=== PATIENT | female | born 1955 | race Caucasian/White ===

== ENCOUNTER 2025-04-01 12:02 | Emergency (ER) | payer MEDICARE, OTHER, SELFPAY ==
[2025-04-01 12:04] VITALS: BP 158/103
--- NOTE | 2025-04-01 12:45 | ED.GENMED ---
History of Present Illness
General
Chief Complaint: Abdominal Symptoms
Source: patient
Exam Limitations: none
Time Seen by Provider: 04/01/25 12:35
History of Present Illness
History of Present Illness:
69-year-old female presents complaining of several days of lower abdominal pain. She has a history of diverticulitis in the past. She was sent in by family doctor. Pain is unrelieved with moving her bowels. No urinary symptoms. No fever. She
is nauseous without vomiting. No flank pain. She has a history of total hysterectomy secondary to cervical cancer. No other complaints at this time
Past History
Past History
ED Past Medical History: Asthma
Social History
Tobacco: Former smoker
Personal:
Living: with family
Phy Exam
Physical Exam
Physical Exam:
General: Well-appearing female no acute respiratory distress
HEENT: Normal cephalic atraumatic
Heart: Regular rate and rhythm
Lungs: Clear no wheeze
Abdomen is soft tender to the suprapubic region no guarding or rebound nondistended
Extremities: No cyanosis or edema
Skin warm no rash
Course
Orders/Labs/Results
Orders:
Orders
04/01/25 12:42
CT Abd/pelvis W Iv Cont Urgent
Comment:
Reason For Exam: lower abdominal pain
04/01/25 12:49
Complete Blood Count/With Diff Urgent
Comprehensive Metabolic Panel Urgent
Lipase Urgent
04/01/25 12:52
Urinalysis Reflex To Culture Urgent
Date Specimen was Collected: 04/01/25
Time Specimen was Collected: 12:50
Abnormal Lab Results
04/01/25
12:49
Abs Immat Gran (auto) 0.1 H 10^3/uL
(0-0.05)
Immature Gran % 0.6 H %
(0-0.5)
BUN 22 H mg/dl
(7-17)
Total Bilirubin 3.2 H mg/dl
(0.2-1.3)
AST 38 H U/L
(14-36)
ALT 54 H U/L
(0-35)
04/01/25 12:49
04/01/25 12:49
Vital Signs
Initial and Last Documented VS:
Initial Vital Signs
Temp Pulse Resp BP Pulse Ox
97.7 F 94 18 158/103 99
04/01/25 12:04 04/01/25 12:04 04/01/25 12:04 04/01/25 12:04 04/01/25 12:04
Last Documented Vital Signs
Temp Pulse Resp BP Pulse Ox
97.7 F 86 16 129/86 97
04/01/25 12:04 04/01/25 15:56 04/01/25 15:56 04/01/25 15:56 04/01/25 15:56
MDM/Problems Addressed
Differential Diagnosis Includes:
Lower abdominal pain. Consider diverticulitis versus appendicitis versus bowel obstruction versus kidney stone
Will check labs and urine. Declined pain medicine CT pending.
*Pulse Oximetry
SaO2: 99
Oxygen Mode of Delivery: Room air
Patient hypoxic: no
*Critical Care Note
Total Time (30-74mins, 75-104mins- exclusive of procedures): Not Applicable
Update Note
Update Note:
CT demonstrates mild acute colitis throughout the descending colon. Patient has not had loose stools here. She is afebrile with normal white count and stable vital signs. She is benign upon reassessment. At this point we will recommend clear
liquid and bland diet and avoid treating colitis. Recommend follow-up with her GI team. Return precautions were given
ED Attending Note
-
Portions of this chart may have been created with voice recognition software.� Occasional wrong word or��sound alike� substitutions may have occurred due to the inherent limitations of voice recognition software.
Discharge Plan
Departure
Patient Disposition: Home (Routine Discharge)
Date of Disposition: 04/01/25
Time of Disposition: 17:30
Patient with high blood pressure during this ER visit?: No
Discharge Problem:
Colitis
Instructions: Clear Liquid Diet, [place] [address] Diet
Prescriptions:
No Action
prednisone 20 MG tablet
40 mg PO DAILY Qty: 10 0RF
Referrals:
Lennox Cadena PA-C [Family Provider, Family Practice]
Activity Restrictions/Additional Instructions:
You may use Tylenol for pain. Drink plenty of clear liquids. Eat a bland diet. Return here for increasing pain fever vomiting or other concerning findings. Follow-up with GI otherwise
Interventions
Interventions:
*Risk Screen - Suicide Last Done: 04/01/25 12:04
*General Assessment Last Done: 04/01/25 12:04
*Neglect/Abuse Screening Last Done: 04/01/25 13:04
*ED- Fall Risk Assessment Last Done: 04/01/25 13:04
*ED COVID-19 Vaccine History Last Done: 04/01/25 13:04
*ED Influenza Vaccine History Last Done: 04/01/25 13:04
ZO-Eqrrzt-Dlsiojbhbs Assessment Last Done: 04/01/25 12:53
Discharge Date and Time
Print Language: YORUBA
[2025-04-01 12:50] VITALS: BMI 31.3
[2025-04-01 13:03] LABS: Hematocrit 45.1 % (37.0-47.0); Hemoglobin 16.0 g/dL (12.0-16.0); Mean Corp Hgb Conc. 35.5 g/dL (33.0-37.0); Mean Corpuscular Volume 85.1 fL (81.0-99.0); Nucleated Red Blood Cells % 0 %; Platelet Count 237 10^3/uL (130-400); Red Cell Dist. Width 12.2 % (11.5-14.5)
[2025-04-01 13:13] LABS: Urine Character Clear (Clear)
[2025-04-01 13:26] LABS: ALT (SGPT) 54 U/L (0-35); AST (SGOT) 38 U/L (14-36); Albumin 4.8 g/dl (3.5-5.0); Alkaline Phosphatase 68 U/L (38-126); Blood Urea Nitrogen 22 mg/dl (7-17); Calcium 9.9 mg/dl (8.4-10.2); Carbon Dioxide 28 mmol/L (22-30); Chloride 102 mmol/L (98-107); Estimated Creatinine Clearance 61 ml/min; Glucose 98 mg/dl (70-99); Lipase 297 U/L (23-300); Potassium 3.8 mmol/L (3.5-5.1); Sodium 138 mmol/L (135-145); Total Protein 7.5 g/dl (6.3-8.2); eGFR > 60.00
[2025-04-01 14:55] VITALS: BP 122/82
[2025-04-01 15:56] VITALS: BP 129/86
== END 2025-04-01 17:34 | disposition home or self-care (01) ==
LOC: EMR 12:02
PROVIDERS: Physician Assistant; EMERGENCY PHYSICIAN Emergency Medicine; FAMILY PHYSICIAN Physician Assistant Medical
DX: R10.30 Lower abdominal pain, unspecified (principal); C53.9 Malignant neoplasm of cervix uteri, unspecified; J45.909 Unspecified asthma, uncomplicated; Z85.41 Personal history of malignant neoplasm of cervix uteri; Z87.891 Personal history of nicotine dependence; Z90.710 Acquired absence of both cervix and uterus
CPT/HCPCS: 99284; 74177; 80053; 81003; 83690; 85025; Q9967

== ENCOUNTER → 2025-04-19 09:58 | Outpatient (REF) | payer MEDICARE, SELFPAY | LOC: HWRAD 09:58 | PROVIDERS: ATTENDING PHYSICIAN Student in an Organized Health Care Education/Training Program | DX: R91.1 Solitary pulmonary nodule (principal) | CPT/HCPCS: 71250 ==